=== PATIENT | female | born 1955 | race Caucasian/White ===

== ENCOUNTER 2017-06-20 00:18 | Day surgery (SDC) | payer OTHER ==
[~2017-06-20] VITALS: Ht 162.6 cm; Wt 59.0 kg
[~2017-06-20 00:18] MED LIST: ACYC200C PO; ASCO-294 PO; CHOL100045 PO; ESTR42.52 VAGINAL; MULT-1018 PO; OMEG500C PO; TRAZ-115 PO; ZOLP5TAB6 PO
[2017-06-20] MEDS ORDERED: fentaNYL-PF 50 mCg/mL 2 mL Inj IVPUSH PRN (06:00)
[2017-06-20] MEDS ORDERED: Lactated Ringer's 1,000 ML IV ONE (06:00)
[2017-06-20] MEDS ORDERED: 0.9% Sodium Chloride 1,000 ML IV SCH (06:00)
[2017-06-20] MEDS ORDERED: Sodium Chloride LOK Flush 10 mL Syringe IV PRN (06:00)
[2017-06-20 11:36] VITALS: BP 156/95; PULSE 95; RESP 16; O2SAT 100
[2017-06-20 13:02] VITALS: BP 142/78; PULSE 84; RESP 14; O2SAT 100
[2017-06-20 13:08] VITALS: BP 142/77; PULSE 79; RESP 16; O2SAT 100
--- NOTE | 2017-06-20 13:31 | ENDO ---
[address] [address] ENDOSCOPY PROCEDURE PATIENT: DEXTER ENGLE : 1955 MR#: [id number] ADMIT: 06/20/2017 JOB ID: [id number] PRIMARY PROVIDER: JEAN PIERRE Antonio PROCEDURE: Colonoscopy. INDICATIONS: A 62-year-old female who reports for colon cancer screening. EQUIPMENT: PCF H 180 AL. SEDATION: 9 mg Versed and 150 mcg fentanyl. COMPLICATIONS: None identified. BOWEL PREPARATION: Fair, adequate exam. PROCEDURE INFORMATION: After the risks and benefits were explained, written and verbal informed consent was obtained. The patient was brought into the endoscopy suite and placed in the left lateral decubitus position. Sedation was achieved as above. Digital rectal examination accomplished. Mild internal hemorrhoids. The scope was introduced into the rectum and advanced to the cecum as identified by the appendiceal orifice and ileocecal valve. The scope was slowly withdrawn to carefully examine the mucosa for any defects or lesions. Retroflexed views were avoided in the rectum. Multiple direct views were made through the dentate line for exclusion of pathology. The colon was decompressed and the scope removed from the patient, who tolerated the procedure well. FINDINGS: No significant polyps, mass lesions, or inflammatory features identified throughout. ENDOSCOPIC DIAGNOSIS: 1. Hemorrhoids. 2. Otherwise visually unremarkable colonoscopy to cecum. RECOMMENDATIONS: Repeat colonoscopy 10 years' time, sooner should symptoms warrant an earlier exam.
== END 2017-06-20 23:59 | disposition home or self-care (01) ==
LOC: END 00:18
PROVIDERS: ATTEND Internal Medicine Gastroenterology
DX: Z12.11 Encounter for screening for malignant neoplasm of colon (principal); I10 Essential (primary) hypertension; F41.9 Anxiety disorder, unspecified; E78.5 Hyperlipidemia, unspecified; Z79.890 Hormone replacement therapy; K64.9 Unspecified hemorrhoids
CPT/HCPCS: 99152; G0121; J2250; J3010; J7030